=== PATIENT | male | born 1990 | race African-American/Black ===

== ENCOUNTER 2023-01-07 12:31 | Inpatient (IN) ==
[2023-01-07] MEDS ORDERED: LACTATED RINGERS SEPSIS IV ONE (12:56)
[2023-01-07] MEDS ORDERED: NS 0.9% 1000 ml BAG 1,000 ML IV ONE (12:59)
[2023-01-07] MEDS ORDERED: Ciprofloxacin 400mg IVPREMIX 400 MG/200 ML BAG IVPB ONE (13:00)
[2023-01-07 13:38] LABS: Activated Partial Thrombo Time 31.1 seconds (26.0-38.0); INR 1.13 (0.88-1.18)
[2023-01-07 13:43] LABS: ABS Eosinophils 0.1 10^3/uL (0.0-0.5); ABS Lymphocytes 0.6 10^3/uL (1.0-4.8); ABS Monocytes 1.1 10^3/uL (0.0-1.1); ABS Nucleated RBC 0.02 10^3/ul; Eosinophil % 2.1 %; Hematocrit 45.1 % (38-53); Hemoglobin 14.8 g/dL (13.2-16.3); Lymphocyte % 8.3 %; Mean Corpuscular Hemoglobin 23.2 pg (27-33); Mean Corpuscular Hgb Conc 32.8 g/dL (31-36); Mean Corpuscular Volume 70.9 fL (80-97); Mean Platelet Volume 8.1 fL (7.5-11.2); Nucleated Red Blood Cells % 0.2 /100 WBC (0.0-0.4); Platelet Count 261 10^3/uL (150-450); Red Blood Count 6.37 10^6/uL (4.06-5.63); White Blood Count 6.8 10^3/uL (3.6-10.2)
[2023-01-07 13:51] LABS: Albumin 4.6 g/dL (3.2-5.2); Albumin/Globulin Ratio 1.8 (1-3); C Reactive Protein 5.73 mg/L (<8.01); Calcium 10.1 mg/dL (8.6-10.3); Creatinine, Serum 1.14 mg/dL (0.67-1.17); Globulin 2.6 g/dL (2-4); Magnesium 1.6 mg/dL (1.9-2.7); Potassium 3.8 mmol/L (3.5-5.0); Total Bilirubin 0.5 mg/dL (0.2-1.0); Total Protein 7.2 g/dL (6.4-8.9); eGFR CKD-EPI 88.2 (>60)
[2023-01-07] MEDS ORDERED: Magnesium Sulfate 2 gm BAG 2 GM/50 ML BAG IVPB ONE (14:05)
[2023-01-07 14:37] LABS: TSH Ultra Thyroid Stim Horm 0.82 mcIU/mL (0.34-5.60)
[2023-01-07 15:19] LABS: High Sensitivity Troponin 1 Hr 4 pg/mL (<20)
[2023-01-07] MEDS ORDERED: Lactated Ringers 1000 ml BAG 1,000 ML IV ONE (15:39)
[2023-01-07] MEDS ORDERED: Magnesium Hydroxide LIQ 30 ML UDC PO PRN (16:18)
[2023-01-07] MEDS ORDERED: Polyethylene Glycol 3350 17 GM PACKET PO PRN (16:18)
[2023-01-07] MEDS ORDERED: Senna TAB 8.6 mg TAB PO PRN (16:18)
[2023-01-07] MEDS: DOXYcycline 100 MG in NS 0.9% 250 ml 250 ML IVPB SCH (16:48)
[2023-01-07 17:38] LABS: Urine Appearance Clear; Urine Bilirubin Negative (Negative); Urine Blood Negative (Negative); Urine Color Straw; Urine Glucose Negative (Negative); Urine Ketones Negative (Negative); Urine Nitrite Negative (Negative); Urine Protein Negative (Negative); Urine Specific Gravity 1.005 (1.002-1.030); Urine Urobilinogen Negative (Negative)
[2023-01-07] MEDS: ATOVAQUONE PO SCH (18:12)
[2023-01-07] MEDS: PROGUANIL PO SCH (18:12)
[2023-01-07] MEDS: cefTRIAXone 1 gm/50 mL D5W 1 GM/50 ML BAG IV SCH (18:15)
[2023-01-07 19:05] LABS: RBC Parasite Smear No Parasites Seen (No Parasite)
[2023-01-07 23:26] LABS: Hepatitis B Surface Antigen Nonreactive (Nonreactive)
[2023-01-07 23:43] LABS: Hepatitis B Surface Ab Immune (Immune); Hepatitis C Antibody Negative (Negative)
[2023-01-08] MEDS: DOXYcycline 100 MG in NS 0.9% 250 ml 250 ML IVPB SCH ×2 (06:00→16:53)
[2023-01-08] MEDS ORDERED: Acetaminophen IV 1 GM/100ML 1,000 MG/100 ML BAG IV ONE (08:11)
[2023-01-08 08:48] LABS: Hematocrit 41.1 % (38-53); Hemoglobin 13.2 g/dL (13.2-16.3); Mean Corpuscular Hemoglobin 23.3 pg (27-33); Mean Corpuscular Hgb Conc 32.1 g/dL (31-36); Mean Corpuscular Volume 72.6 fL (80-97); Mean Platelet Volume 8.5 fL (7.5-11.2); Platelet Count 206 10^3/uL (150-450); Red Blood Count 5.66 10^6/uL (4.06-5.63); Red Cell Distribution Width 15.9 % (12-17); White Blood Count 5.2 10^3/uL (3.6-10.2)
[2023-01-08 08:52] LABS: Calcium 8.8 mg/dL (8.6-10.3); Creatinine, Serum 1.11 mg/dL (0.67-1.17); Magnesium 1.6 mg/dL (1.9-2.7); Potassium 3.8 mmol/L (3.5-5.0)
[2023-01-08 09:28] LABS: ABS Lymphocytes 0.7 10^3/uL (1.0-4.8); ABS Monocytes 0.8 10^3/uL (0.0-1.1); ABS Neutrophils 3.6 10^3/uL (1.5-7.6); ABS Nucleated RBC 0.01 10^3/ul; Eosinophil % 0.4 %; Lymphocyte % 13.6 %; Nucleated Red Blood Cells % 0.1 /100 WBC (0.0-0.4)
[2023-01-08] MEDS ORDERED: Magnesium Sulfate 2 gm BAG 2 GM/50 ML BAG IVPB ONE (12:00)
[2023-01-08 14:12] LABS: HIV 4th Generation Preliminary Reactive (Nonreactive)
[2023-01-08] MEDS: PROGUANIL PO SCH (16:52)
[2023-01-08] MEDS: ATOVAQUONE PO SCH (16:52)
[2023-01-08] MEDS ORDERED: cefTRIAXone 1 gm/50 mL D5W 1 GM/50 ML BAG IV SCH (18:00)
[2023-01-08] MEDS: cefTRIAXone 1 gm/50 mL D5W 1 GM/50 ML BAG IV SCH (19:44)
[2023-01-09] MEDS: DOXYcycline 100 MG in NS 0.9% 250 ml 250 ML IVPB SCH (04:14)
[2023-01-09 06:23] LABS: ABS Lymphocytes 1.4 10^3/uL (1.0-4.8); ABS Monocytes 0.6 10^3/uL (0.0-1.1); ABS Neutrophils 1.1 10^3/uL (1.5-7.6); Eosinophil % 0.8 %; Hematocrit 42.3 % (38-53); Hemoglobin 13.7 g/dL (13.2-16.3); Lymphocyte % 44.1 %; Mean Corpuscular Hemoglobin 23.5 pg (27-33); Mean Corpuscular Hgb Conc 32.5 g/dL (31-36); Mean Corpuscular Volume 72.4 fL (80-97); Mean Platelet Volume 8.1 fL (7.5-11.2); Nucleated Red Blood Cells % 0.2 /100 WBC (0.0-0.4); Platelet Count 187 10^3/uL (150-450); Red Blood Count 5.84 10^6/uL (4.06-5.63); Red Cell Distribution Width 16.1 % (12-17); White Blood Count 3.1 10^3/uL (3.6-10.2)
[2023-01-09 06:37] LABS: Calcium 8.6 mg/dL (8.6-10.3); Creatinine, Serum 1.13 mg/dL (0.67-1.17); Magnesium 1.7 mg/dL (1.9-2.7); eGFR CKD-EPI 89.1 (>60)
[2023-01-09] MEDS ORDERED: Magnesium Sulfate IV 3 GM in NS 0.9% 100 ml BAG 100 ML IVPB ONE (07:13)
[2023-01-09 07:59] LABS: ABS Lymphocytes 2.1 10^3/uL (1.0-4.8); ABS Monocytes 0.6 10^3/uL (0.0-1.1); ABS Neutrophils 1.1 10^3/uL (1.5-7.6); ABS Nucleated RBC 0.02 10^3/ul; Eosinophil % 0.8 %; Hematocrit 44.1 % (38-53); Hemoglobin 14.1 g/dL (13.2-16.3); Mean Corpuscular Hemoglobin 23.2 pg (27-33); Mean Corpuscular Volume 72.4 fL (80-97); Mean Platelet Volume 8.5 fL (7.5-11.2); Nucleated Red Blood Cells % 0.6 /100 WBC (0.0-0.4); Platelet Count 215 10^3/uL (150-450); Red Blood Count 6.09 10^6/uL (4.06-5.63); Red Cell Distribution Width 15.8 % (12-17); White Blood Count 3.9 10^3/uL (3.6-10.2)
[2023-01-09] MEDS ORDERED: PROGUANIL PO SCH (09:55)
[2023-01-09] MEDS ORDERED: ATOVAQUONE PO SCH (09:55)
[2023-01-09 10:29] VITALS: BP 107/76
[2023-01-09 17:05] LABS: HIV-1 Ab Differentiation,P Positive (Negative); HIV-2 Ab Differentiation,P Negative (Negative)
[2023-01-11] LABS: Adenovirus F40/41 Negative (Negative); Astrovirus Negative (Negative); Cryptosporidium species Negative (Negative); Cyclospora cayetanensis Negative (Negative); Entamoeba histolytica Negative (Negative); Enteroaggregative E.coli(EAEC) Negative (Negative); Enteropathogenic Ecoli(EPEC) Positive (Negative); Enterotoxigenic Ecoli(ETEC) Negative (Negative); Norovirus GI/GII Negative (Negative); Plesiomonas shigelloides Negative (Negative); Salmonella species Negative (Negative); Sapovirus Negative (Negative); Shiga toxin producing E. coli Negative (Negative); Shigella/Enteroinvasive E.coli Negative (Negative); Specimen Source STOOL; Vibrio cholerae Negative (Negative); Yersinia species Negative (Negative)
[2023-01-11 13:14] LABS: Anaplasma phagocytophilum Negative (Negative); B. miyamotoi PCR, B Negative (Negative); Babesia divergens/MO-1 Negative (Negative); Babesia ducani Negative (Negative); Ehrlichia chaffeensis Negative (Negative); Ehrlichia ewingii/canis Negative (Negative); Ehrlichia muris eauclairensis Negative (Negative)
[2023-01-12 07:06] LABS: HIV-1 RNA (PCR) Undetected copies/mL (Undetected)
== END 2023-01-09 12:45 | disposition home or self-care (01) | DRG 720 ==
LOC: EDBD → EDHOLD 12:31 → ED 12:31 → OBSVTOIN 16:18 → MED 01-08 17:40
PROVIDERS: ADMIT Internal Medicine; ATTEND Internal Medicine